=== PATIENT | male | born 1985 | race Two or more races ===

== ENCOUNTER 2021-10-18 08:13 | Emergency (ER) | payer SELFPAY ==
[~2021-10-18] VITALS: Ht 177.8 cm; Wt 88.0 kg
--- NOTE | 2021-10-18 08:33 | NUR ---
BIBS C/O BILATERAL FLANK PAIN X 2 HRS,BLOOD NOTED IN URINE. TO ER BED 4, HOOKED TO MONITOR, CHANGED TO HOSP GOWN, WARM BLANKET PROVIDED. PATIENT AAO x 4. BREATHING EVEN AND UNLABORED. AWAITING MD ALVAREZ.
--- NOTE | 2021-10-18 08:33 | NUR ---
URINE SENT TO LAB. CALLED FOR FISH PROCESSOR.
--- NOTE | 2021-10-18 08:36 | NUR ---
DR ZHANG AT BEDSIDE
--- NOTE | 2021-10-18 09:00 | NUR ---
brought in via [facility] for ct scan
[2021-10-18] MEDS ORDERED: KETOROLAC TROMETHAMINE 15 MG/ML VIAL ONE (09:16)
[2021-10-18] MEDS: KETOROLAC TROMETHAMINE INJ 30 MG/ML VIAL IV ONE (09:22)
[2021-10-18 09:24] LABS: BILIRUBIN,URINE MODERATE (NEGATIVE); COLOR,URINE BROWN (YELLOW); LEUKOCYTE ESTERASE ,URINE TRACE (NEGATIVE); NITRITE, URINE POSITIVE (NEGATIVE); PH,URINE 6.5 (5.0-8.0); PROTEIN,URINE >=300 mg/dl (NEGATIVE); UGLUCOSE NEGATIVE (NEGATIVE)
[2021-10-18 09:40] LABS: BASOPHILS % (AUTO) 0.3 % (0.0-2.0); EOSINOPHILS % (AUTO) 0.5 % (0.0-6.0); HEMATOCRIT 45 % (39-51); HEMOGLOBIN 15.5 g/dL (13.5-17.5); LYMPHOCYTES # (AUTO) 1.4 K/uL (0.8-4.8); LYMPHOCYTES % (AUTO) 10.8 % (20.0-44.0); MEAN CORPUSCULAR HGB CONC 35 g/dl (31.0-36.0); MEAN CORPUSCULAR VOLUME 92 fL (80-96); MONOCYTES # (AUTO) 0.6 K/uL (0.1-1.30); MONOCYTES % (AUTO) 4.4 % (2.0-12.0); NEUTROPHILS # (AUTO) 10.9 K/uL (1.8-8.9); PLATELET COUNT (AUTO) 221 K/uL (150-450); RED BLOOD CELL COUNT(AUTO) 4.85 MIL/uL (4.5-6.0)
[2021-10-18 11:44] LABS: ALBUMIN 4.5 g/dL (3.4-5.0); BILIRUBIN,DIRECT 0.1 mg/dL (0.0-0.2); BILIRUBIN,TOTAL 0.6 mg/dL (0.2-1.0); CALCIUM, SERUM 9.2 mg/dL (8.5-10.1); CREATININE 1.1 mg/dL (0.6-1.3); POTASSIUM 3.7 mmol/L (3.5-5.1); TOTAL PROTEIN, SERUM 7.9 g/dL (6.4-8.2)
[2021-10-18] MEDS ORDERED: OXYC5CAP18 PO (12:10)
[2021-10-18] MEDS ORDERED: TAMS-12 PO (12:10)
[2021-10-18 12:41] VITALS: BP 129/87
--- NOTE | 2021-10-18 12:41 | NUR ---
IV removed. Catheter intact and site benign. Pressure and 4x4 applied to site. No bleeding noted.Patient discharged to home in stable condition. Written and verbal after care instructions given. Patient verbalizes understanding of instruction.
[2021-10-18 13:17] LABS: RBC,URINE TOO NUMEROUS TO COUN /HPF (0-2)
[2021-10-18 13:18] LABS: BACTERIA,URINE Moderate /HPF (None Seen); CALCIUM OXALATE CRYSTALS,UR Few /HPF (None Seen)
[2021-10-18 13:19] LABS: URINE AMORPHOUS URATE Moderate /HPF (None Seen)
== END 2021-10-18 12:41 | disposition home or self-care (01) ==
LOC: ER 08:21
DX: N20.0 Calculus of kidney (principal); R31.9 Hematuria, unspecified; R10.9 Unspecified abdominal pain; Z87.442 Personal history of urinary calculi; Z79.899 Other long term (current) drug therapy
CPT/HCPCS: 36415; 74176; 76705; 80048; 80076; 81001; 83690; 85025; 87086; 96374; 99284; J1885